=== PATIENT | female | born 1990 | race African-American/Black ===

== ENCOUNTER 2017-02-01 01:41 | Emergency (ER) | payer OTHER ==
[~2017-02-01] VITALS: Ht 149.9 cm; Wt 52.4 kg
[~2017-02-01 01:41] MED LIST: CAMILA0.35 MG PO; EXPECTA PRENAT1 EACH PO; METRONIDAZOLE500 MG PO
[2017-02-01 01:45] VITALS: BP 99/67
[2017-02-01 02:33] LABS: ADD MIUA? YES; BILIRUBIN NEGATIVE; BLOOD MODERATE; COLOR STRAW ((YELLOW)); GLUCOSE (STRIP) NEGATIVE; KETONES NEGATIVE; LEUKOCYTES LARGE; NITRITE NEGATIVE; PROTEIN (STRIP) NEGATIVE; SPECIFIC GRAVITY 1.005 (1.000-1.030); UROBILINOGEN 0.2 MG/DL (0.2-1.0)
[2017-02-01] MEDS ORDERED: KEFLEX500 MG PO (02:39)
[2017-02-01 02:44] LABS: BACTERIA RARE /HPF; EPITHELIAL CELLS 1+ /HPF; HYALINE CASTS 0-5 /LPF; MUCUS TRACE /LPF; UCUL ADDED? YES; WHITE BLOOD CELLS TNTC /HPF (0-5)
== END 2017-02-01 02:55 | disposition home or self-care (01) ==
LOC: EME 01:41
PROVIDERS: Physician Assistant
DX: O23.42 Unspecified infection of urinary tract in pregnancy, second trimester (principal); Z3A.19 19 weeks gestation of pregnancy
CPT/HCPCS: 81003; 87086; 99281; 99284

== ENCOUNTER 2017-03-20 20:35 | Outpatient (CLI) | payer OTHER ==
[~2017-03-20] VITALS: Ht 149.9 cm; Wt 56.5 kg
[~2017-03-20 20:35] MED LIST changes: +KEFLEX500 MG PO
[2017-03-20 23:40] LABS: MCH 24.9 PG (29.0-34.0); MCHC 32.1 G/DL (30.0-36.0); MCV 77.3 FL (83-99); MEAN PLAT.VOLUME 11.2 uM^3 (9.5-12.4); PLATELET COUNT 243 K/uL (156-360); RBC DIS.WIDTH-SD 39.7 % (39-53); RED BLOOD COUNT 3.62 M/uL (3.80-5.20)
[2017-03-20 23:49] LABS: CHLORIDE 108 mEq/L (99-109); POTASSIUM 3.8 mEq/L (3.7-5.4); SODIUM 136 mEq/L (136-147)
[2017-03-20 23:51] LABS: GLUCOSE 79 mg/dL (70-99)
[2017-03-20 23:53] LABS: ANION GAP 7 MEQ/L (2-14)
[2017-03-20 23:55] LABS: GFR ESTIMATE (CALCULATED) > 59 mL/min/
[2017-03-20 23:56] LABS: UREA NITROGEN (BUN) 5 mg/dL (9-23)
[2017-03-21 00:57] VITALS: BP 112/62
[2017-03-21 01:22] LABS: ADD MIUA? YES; BILIRUBIN NEGATIVE; BLOOD NEGATIVE; COLOR YELLOW ((YELLOW)); GLUCOSE (STRIP) NEGATIVE; KETONES NEGATIVE; LEUKOCYTES LARGE; NITRITE NEGATIVE; PROTEIN (STRIP) NEGATIVE; SPECIFIC GRAVITY 1.011 (1.000-1.030)
[2017-03-21 01:27] LABS: BACTERIA RARE /HPF; EPITHELIAL CELLS RARE /HPF; MUCUS TRACE /LPF; UCUL ADDED? NO
[2017-03-23 14:02] LABS: CHLAMYDIA TRACHOMATIS NEGATIVE; NEISSERIA GONORRHOEAE NEGATIVE
== END 2017-03-21 02:10 | disposition home or self-care (01) ==
LOC: EME 20:35 → LDRP-OP 20:35 → 2WEST 03-21 00:34
PROVIDERS: Emergency Medicine
DX: O26.892 Other specified pregnancy related conditions, second trimester (principal); R10.2 Pelvic and perineal pain; Z3A.25 25 weeks gestation of pregnancy
CPT/HCPCS: 80048; 81003; 85027; 87210; 87491; 87591; 99281; 99284; G0378

== ENCOUNTER 2017-05-03 14:07 | Outpatient (CLI) | payer OTHER ==
[~2017-05-03] VITALS: Ht 124.5 cm; Wt 57.1 kg
[2017-05-03 14:26] VITALS: BP 116/55
[2017-05-03 15:05] LABS: ADD MIUA? YES; BILIRUBIN NEGATIVE; BLOOD NEGATIVE; COLOR YELLOW ((YELLOW)); GLUCOSE (STRIP) NEGATIVE; KETONES 5; LEUKOCYTES LARGE; NITRITE NEGATIVE; PROTEIN (STRIP) NEGATIVE; SPECIFIC GRAVITY 1.018 (1.000-1.030); UROBILINOGEN 0.2 MG/DL (0.2-1.0)
[2017-05-03 15:13] LABS: EOSINOPHIL (%) 0.2 % (0-5); HEMATOCRIT 30.2 % (36.0-46.0); IMMATURE GRANULOCYTE (%) 2.3 % (0.0-0.7); IMMATURE GRANULOCYTE COUNT 0.2 K/uL; INSTRUMENT ABS NEUTROPHIL CT 7.6 K/uL; LYMPHOCYTE COUNT 1.4 K/uL (1.0-2.8); MCH 24.1 PG (29.0-34.0); MCHC 31.5 G/DL (30.0-36.0); MCV 76.5 FL (83-99); MEAN PLAT.VOLUME 10.8 uM^3 (9.5-12.4); MONOCYTE COUNT 0.6 K/uL (0-0.8); NEUTROPHIL (%) 77.4 % (45-76); NEUTROPHIL COUNT 7.6 K/uL (1.8-6.4); PLATELET COUNT 228 K/uL (156-360); RBC DIS.WIDTH-CV 14.3 % (11.8-14.6); RBC DIS.WIDTH-SD 39.8 % (39-53); RED BLOOD COUNT 3.95 M/uL (3.80-5.20); WHITE BLOOD COUNT 9.8 K/uL (4.1-10.2)
[2017-05-03 15:15] LABS: BACTERIA RARE /HPF; EPITHELIAL CELLS 1+ /HPF; HYALINE CASTS 0-5 /LPF; MUCUS TRACE /LPF; RED BLOOD CELLS 0-5 /HPF (0-5)
[2017-05-03 17:00] VITALS: BP 109/62
[2017-05-03 18:19] LABS: CANDIDA DNA PROBE NEGATIVE; GARDNERELLA DNA PROBE POSITIVE; INTERNAL CONTROL VALID? YES
[2017-05-03] MEDS ORDERED: PRENATAL TABLE1 EAC3 PO (19:12)
[2017-05-03] MEDS ORDERED: ACYCLOVIR200 MG PO (20:22)
[2017-05-03] MEDS ORDERED: VITRON-C TABLE1 EACH PO (20:23)
[2017-05-03] MEDS ORDERED: FLAGYL500 MG PO (20:23)
== END 2017-05-03 21:01 | disposition home or self-care (01) ==
LOC: LDRP-OP → 2WEST 14:08 → LDRP-OP 08-08 16:32
PROVIDERS: Advanced Practice Midwife
DX: O60.03 Preterm labor without delivery, third trimester (principal); Z3A.32 32 weeks gestation of pregnancy; O99.013 Anemia complicating pregnancy, third trimester
CPT/HCPCS: 59025; 76805; 81003; 85025; 86790 90; 87077; 87086; 87254; 87480; 87510; 87660; G0378

== ENCOUNTER 2017-05-17 12:53 | Outpatient (CLI) | payer OTHER ==
[~2017-05-17 12:53] MED LIST changes: +ACYCLOVIR200 MG PO; +FLAGYL500 MG PO; +PRENATAL TABLE1 EAC3 PO; +VITRON-C TABLE1 EACH PO
[2017-05-17 13:19] VITALS: BP 107/64
[2017-05-17] MEDS ORDERED: ACYCLOVIR400 MG PO (13:24)
[2017-05-17 14:17] VITALS: BP 105/62
[2017-05-17 15:04] VITALS: BP 102/64
[2017-05-17 15:16] VITALS: BP 106/72
[2017-05-17 15:47] LABS: ADD MIUA? NO; BILIRUBIN NEGATIVE; BLOOD NEGATIVE; COLOR COLORLESS ((YELLOW)); GLUCOSE (STRIP) NEGATIVE; KETONES NEGATIVE; LEUKOCYTES NEGATIVE; NITRITE NEGATIVE; PROTEIN (STRIP) NEGATIVE; SPECIFIC GRAVITY 1.002 (1.000-1.030); UCUL ADDED? NO; UROBILINOGEN 0.2 MG/DL (0.2-1.0)
[2017-05-17] MEDS ORDERED: NIFEDIPINE10 MG PO (15:52)
[2017-05-17 15:56] VITALS: BP 115/70
[2017-05-17 15:56] LABS: PROBE CHECK PASS
[2017-05-17 22:14] LABS: CANDIDA DNA PROBE POSITIVE; GARDNERELLA DNA PROBE NEGATIVE; INTERNAL CONTROL VALID? YES
[2017-05-18 12:42] LABS: CHLAMYDIA TRACHOMATIS NEGATIVE; NEISSERIA GONORRHOEAE NEGATIVE
== END 2017-05-17 17:19 | disposition home or self-care (01) ==
LOC: LDRP-OP 12:53 → 2WEST 12:54 → LDRP-OP 08-08 21:27
PROVIDERS: Advanced Practice Midwife; Obstetrics & Gynecology Obstetrics
DX: O47.03 False labor before 37 completed weeks of gestation, third trimester (principal); Z3A.33 33 weeks gestation of pregnancy; O98.513 Other viral diseases complicating pregnancy, third trimester; B00.9 Herpesviral infection, unspecified
CPT/HCPCS: 59025; 81003; 82731; 87081; 87086; 87480; 87491; 87510; 87591; 87653; 87660; G0378; J7120

== ENCOUNTER 2017-06-19 07:28 | Inpatient (IN) | payer OTHER ==
[2017-06-19] VITALS (26 sets, daily range): BP systolic 105–145; BP diastolic 56–80
[~2017-06-19] VITALS: Ht 149.9 cm; Wt 59.8 kg
[~2017-06-19 07:28] MED LIST changes: +ACYCLOVIR400 MG PO; +NIFEDIPINE10 MG PO
[2017-06-19] MEDS ORDERED: PRENATAL TABLE1 EAC3 PO (07:48)
[2017-06-19 11:33] LABS: EOSINOPHIL (%) 0.2 % (0-5); HEMATOCRIT 33.7 % (36.0-46.0); IMMATURE GRANULOCYTE (%) 0.8 % (0.0-0.7); IMMATURE GRANULOCYTE COUNT 0.1 K/uL; INSTRUMENT ABS NEUTROPHIL CT 7.1 K/uL; LYMPHOCYTE COUNT 1.4 K/uL (1.0-2.8); MCH 23.1 PG (29.0-34.0); MCHC 30.9 G/DL (30.0-36.0); MCV 74.7 FL (83-99); MEAN PLAT.VOLUME 11.6 uM^3 (9.5-12.4); MONOCYTE COUNT 0.7 K/uL (0-0.8); NEUTROPHIL (%) 76.3 % (45-76); NEUTROPHIL COUNT 7.1 K/uL (1.8-6.4); PLATELET COUNT 269 K/uL (156-360); RBC DIS.WIDTH-CV 15.2 % (11.8-14.6); RBC DIS.WIDTH-SD 41.4 % (39-53); RED BLOOD COUNT 4.51 M/uL (3.80-5.20); WHITE BLOOD COUNT 9.3 K/uL (4.1-10.2)
[2017-06-20 00:39] VITALS: BP 110/63
[2017-06-20 07:05] LABS: EOSINOPHIL (%) 0.2 % (0-5); HEMATOCRIT 28.4 % (36.0-46.0); IMMATURE GRANULOCYTE (%) 0.9 % (0.0-0.7); IMMATURE GRANULOCYTE COUNT 0.1 K/uL; INSTRUMENT ABS NEUTROPHIL CT 9.4 K/uL; LYMPHOCYTE COUNT 1.3 K/uL (1.0-2.8); MCH 24.1 PG (29.0-34.0); MCHC 32.4 G/DL (30.0-36.0); MCV 74.5 FL (83-99); MEAN PLAT.VOLUME 11.5 uM^3 (9.5-12.4); MONOCYTE (%) 7.9 % (3-12); MONOCYTE COUNT 0.9 K/uL (0-0.8); NEUTROPHIL (%) 79.7 % (45-76); NEUTROPHIL COUNT 9.4 K/uL (1.8-6.4); PLATELET COUNT 224 K/uL (156-360); RBC DIS.WIDTH-CV 15.2 % (11.8-14.6); RBC DIS.WIDTH-SD 40.7 % (39-53); RED BLOOD COUNT 3.81 M/uL (3.80-5.20); WHITE BLOOD COUNT 11.9 K/uL (4.1-10.2)
[2017-06-20 07:08] VITALS: BP 125/86
[2017-06-20 14:38] VITALS: BP 110/69
[2017-06-21 07:05] VITALS: BP 120/67
== END 2017-06-21 16:13 | disposition home or self-care (01) | DRG 774 ==
LOC: LDRP-OP 07:28 → 2WEST 07:29 → LDRP-OP 08-08 17:23
PROVIDERS: Advanced Practice Midwife
PROC: 10E0XZZ Delivery of Products of Conception, External Approach (ICD-10-PCS; principal; 2017-06-19)
PROC: 10907ZC Drainage of Amniotic Fluid, Therapeutic from Products of Conception, Via Natural or Artificial Opening (ICD-10-PCS; principal; 2017-06-19)
PROC: 00HU33Z Insertion of Infusion Device into Spinal Canal, Percutaneous Approach (ICD-10-PCS; principal; 2017-06-19)
PROC: 3E0R3CZ (ICD-10-PCS; principal; 2017-06-19)
DX: O98.32 Other infections with a predominantly sexual mode of transmission complicating childbirth (principal); A60.00 Herpesviral infection of urogenital system, unspecified; O99.02 Anemia complicating childbirth; D62 Acute posthemorrhagic anemia; Z3A.37 37 weeks gestation of pregnancy; Z37.0 Single live birth
CPT/HCPCS: 85025; C1755; J3010; J7120